=== PATIENT | male | born 1980 | race Caucasian/White ===

== ENCOUNTER 2018-01-11 14:38 | Emergency (ER) | payer SELFPAY ==
[2018-01-11] MEDS ORDERED: Sodium Chloride 0.9% 10 ML Syringe FLUSH PRN (15:47)
[2018-01-11] MEDS ORDERED: Ondansetron 4 MG/2 ML SDV IVPUSH ONE (15:47)
--- NOTE | 2018-01-11 15:49 | EDM.PDOC ---
ED HPI GENERAL MEDICAL PROBLEM - General Chief Complaint: Gastrointestinal Problem Stated Complaint: NAUSEA/VOMITING Time Seen by Provider: 01/11/18 15:44 Source of Information: Reports: Patient, Family, RN Notes Reviewed History Limitations: Reports: No Limitations - History of Present Illness INITIAL COMMENTS - FREE TEXT/NARRATIVE: 37-year-old gentleman presents to the emergency department today with complaint of nausea vomiting diarrhea, states is been ill for about 24 hours he's been unable to keep any food products down, no fevers shortness of breath or chest pain. He did have a bout of this similar sickness about 1 week ago - Related Data Allergies Allergy/AdvReac Type Severity Reaction Status Date / Time No Known Allergies Allergy Verified 01/11/18 15:12 Home Meds: Home Meds NK [No Known Home Meds] 01/11/18 [History] Past Medical History - Past Health History Medical/Surgical History: Denies Medical/Surgical History Social & Family History - Tobacco Use Smoking Status *Q: Never Smoker ED ROS GENERAL - Review of Systems Review Of Systems: See Below Constitutional: Denies: Fever, Chills HEENT: Reports: No Symptoms Respiratory: Reports: No Symptoms Cardiovascular: Reports: No Symptoms GI/Abdominal: Reports: Abdominal Pain, Diarrhea, Nausea, Vomiting : Reports: No Symptoms Musculoskeletal: Reports: No Symptoms Skin: Reports: No Symptoms Neurological: Reports: No Symptoms ED EXAM, GI/ABD - Physical Exam Exam: See Below Exam Limited By: No Limitations General Appearance: Alert, WD/WN, No Apparent Distress Throat/Mouth: Normal Inspection, Normal Lips, Normal Teeth, Normal Gums, Normal Oropharynx, Normal Voice, No Airway Compromise Head: Atraumatic, Normocephalic Neck: Normal Inspection, Supple, Non-Tender, Full Range of Motion Respiratory/Chest: No Respiratory Distress, Lungs Clear, Normal Breath Sounds, No Accessory Muscle Use Cardiovascular: Normal Peripheral Pulses, Regular Rate, Rhythm, No Murmur GI/Abdominal Exam: Soft, Non-Tender Course - Vital Signs Last Recorded V/S: Last Vital Signs Temp 97.6 F 01/11/18 15:19 Pulse 99 01/11/18 15:19 Resp 13 01/11/18 15:19 BP 151/90 H 01/11/18 15:19 Pulse Ox 98 01/11/18 15:19 - Orders/Labs/Meds Orders: Active Orders 24 hr Category Date Time Status Peripheral IV Care [RC] . DIRECTED Care 01/11/18 15:47 Active Lactated Ringers [Ringers, Lactated] 1,000 ml Med 01/11/18 16:00 Active IV ASDIRECTED Sodium Chloride 0.9% [Saline Flush] Med 01/11/18 15:47 Active 10 ml FLUSH ASDIRECTED PRN ED Antiemetic Medication Reflex [OM.PC] Click to Edit Oth 01/11/18 15:47 Ordered Peripheral IV Insertion Adult [OM.PC] Urgent Oth 01/11/18 15:47 Ordered Medication Orders Lactated Ringer's (Ringers, Lactated) 1,000 mls @ 999 mls/hr IV ASDIRECTED RAMONA Last Admin: 01/11/18 16:31 Dose: 999 mls/hr Sodium Chloride (Saline Flush) 10 ml FLUSH ASDIRECTED PRN PRN Reason: Keep Vein Open Last Admin: 01/11/18 16:30 Dose: 10 ml Labs: Laboratory Tests 01/11/18 01/11/18 01/11/18 Range/Units 16:09 16:10 16:10 WBC 14.3 H (4.5-11.0) K/uL RBC 5.55 (4.30-5.90) M/uL Hgb 16.1 H (12.0-15.0) g/dL Hct 48.3 (40.0-54.0) % MCV 87 (80-98) fL MCH 29 (27-31) pg MCHC 33 (32-36) % Plt Count 512 H (150-400) K/uL Neut % (Auto) 81 H (36-66) % Lymph % (Auto) 12 L (24-44) % Rush % (Auto) 6 (2-6) % Eos % (Auto) 0 L (2-4) % Baso % (Auto) 0 (0-1) % Sodium 139 L (140-148) mmol/L Potassium 4.3 (3.6-5.2) mmol/L Chloride 104 (100-108) mmol/L Carbon Dioxide 24 (21-32) mmol/L Anion Gap 15.3 H (5.0-14.0) mmol/L BUN 12 (7-18) mg/dL Creatinine 0.9 (0.8-1.3) mg/dL Est Cr Clr Drug Dosing 117.16 mL/min Estimated GFR (MDRD) > 60 (>60) Glucose 91 (74-106) mg/dL Lactic Acid (0.4-2.0) mmol/L Calcium 8.6 (8.5-10.1) mg/dL Total Bilirubin 1.3 H (0.2-1.0) mg/dL AST 42 H (15-37) U/L ALT 47 (12-78) U/L Alkaline Phosphatase 53 (46-116) U/L Total Protein 8.2 (6.4-8.2) g/dL Albumin 3.6 (3.4-5.0) g/dL Globulin 4.6 H (2.3-3.5) g/dL Albumin/Globulin Ratio 0.8 L (1.2-2.2) Lipase 136 (73-393) U/L Urine Color [place] Urine Appearance Clear Urine pH 5.0 (4.5-8.0) Ur Specific [place] 1.020 (1.008-1.030) Urine Protein Negative (NEGATIVE) mg/dL Urine Glucose (UA) Normal (NEGATIVE) mg/dL Urine Ketones Negative (NEGATIVE) mg/dL Urine Occult Blood Negative (NEGATIVE) Urine Nitrite Negative (NEGAITVE) Urine Bilirubin Small (NEGATIVE) Urine Urobilinogen 4 (NORMAL) mg/dL Ur Leukocyte Esterase Small (NEGATIVE) Urine RBC 0-5 (0-5) Urine WBC 0-5 (0-5) Ur Epithelial Cells Not seen Amorphous Sediment Rare Urine Bacteria Not seen Urine Mucus Not seen 01/11/18 Range/Units 16:10 WBC (4.5-11.0) K/uL RBC (4.30-5.90) M/uL Hgb (12.0-15.0) g/dL Hct (40.0-54.0) % MCV (80-98) fL MCH (27-31) pg MCHC (32-36) % Plt Count (150-400) K/uL Neut % (Auto) (36-66) % Lymph % (Auto) (24-44) % Rush % (Auto) (2-6) % Eos % (Auto) (2-4) % Baso % (Auto) (0-1) % Sodium (140-148) mmol/L Potassium (3.6-5.2) mmol/L Chloride (100-108) mmol/L Carbon Dioxide (21-32) mmol/L Anion Gap (5.0-14.0) mmol/L BUN (7-18) mg/dL Creatinine (0.8-1.3) mg/dL Est Cr Clr Drug Dosing mL/min Estimated GFR (MDRD) (>60) Glucose (74-106) mg/dL Lactic Acid 1.7 (0.4-2.0) mmol/L Calcium (8.5-10.1) mg/dL Total Bilirubin (0.2-1.0) mg/dL AST (15-37) U/L ALT (12-78) U/L Alkaline Phosphatase (46-116) U/L Total Protein (6.4-8.2) g/dL Albumin (3.4-5.0) g/dL Globulin (2.3-3.5) g/dL Albumin/Globulin Ratio (1.2-2.2) Lipase (73-393) U/L Urine Color Urine Appearance Urine pH (4.5-8.0) Ur Specific [place] (1.008-1.030) Urine Protein (NEGATIVE) mg/dL Urine Glucose (UA) (NEGATIVE) mg/dL Urine Ketones (NEGATIVE) mg/dL Urine Occult Blood (NEGATIVE) Urine Nitrite (NEGAITVE) Urine Bilirubin (NEGATIVE) Urine Urobilinogen (NORMAL) mg/dL Ur Leukocyte Esterase (NEGATIVE) Urine RBC (0-5) Urine WBC (0-5) Ur Epithelial Cells Amorphous Sediment Urine Bacteria Urine Mucus Meds: Medications Generic Name Dose Route Start Last Admin Trade Name Freq PRN Reason Stop Dose Admin Lactated Ringer's 1,000 mls @ 999 mls/hr 01/11/18 16:00 01/11/18 16:31 Ringers, Lactated IV 999 mls/hr ASDIRECTED RAMONA Administration Sodium Chloride 10 ml 01/11/18 15:47 01/11/18 16:30 Saline Flush FLUSH 10 ml ASDIRECTED PRN Administration Keep Vein Open Discontinued Medications Generic Name Dose Route Start Last Admin Trade Name Freq PRN Reason Stop Dose Admin Ondansetron HCl 4 mg 01/11/18 15:47 01/11/18 16:30 Zofran IVPUSH 01/11/18 15:48 4 mg ONETIME ONE Administration Departure - Departure Time of Disposition: 17:38 Disposition: Home, Self-Care 01 Condition: Good Clinical Impression: Gastroenteritis - Discharge Information Referrals: PCP,None [Primary Care Provider] - Forms: ED Department Discharge Additional Instructions: Use Zofran as needed to control nausea and vomiting symptoms, continue to push fluids, Please followup with your primary care provider in 3-5 days if not better, please call return to the emergency department with worsening of symptoms. - My Orders Last 24 Hours: My Active Orders 01/11/18 15:47 Peripheral IV Care [RC] . DIRECTED Sodium Chloride 0.9% [Saline Flush] 10 ml FLUSH ASDIRECTED PRN ED Antiemetic Medication Reflex [OM.PC] Click to Edit Peripheral IV Insertion Adult [OM.PC] Urgent 01/11/18 16:00 Lactated Ringers [Ringers, Lactated] 1,000 ml IV ASDIRECTED - Assessment/Plan Last 24 Hours: My Active Orders 01/11/18 15:47 Peripheral IV Care [RC] . DIRECTED Sodium Chloride 0.9% [Saline Flush] 10 ml FLUSH ASDIRECTED PRN ED Antiemetic Medication Reflex [OM.PC] Click to Edit Peripheral IV Insertion Adult [OM.PC] Urgent 01/11/18 16:00 Lactated Ringers [Ringers, Lactated] 1,000 ml IV ASDIRECTED Plan: Assessment Acuity = acute Site and laterality = gastroenteritis Etiology = probable viral cause Manifestations = nausea and vomiting Location of injury = Home Lab values = WBC elevated at 14.3 consistent leukocytosis, total bilirubin elevated 1.3 consistent with hyperbilirubinemia and specific gravity elevated 1.02 consistent with intravascular volume depletion remainder of the blood works unremarkable Plan He had good improvement with Zofran and 1 L of fluids, plan is discharge home with Zofran 4 mg ODT by mouth 3 times a day when necessary follow-up primary care next 3-5 days for reevaluation if not better This note was dictated using [employer] voice recognition software please call with any questions on syntax or [email or web address].
[2018-01-11] MEDS ORDERED: Lactated Ringers 1,000 ML IV SCH (16:00)
== END 2018-01-11 17:53 | disposition home or self-care (01) ==
LOC: JP.ED 14:38
DX: K52.9 Noninfective gastroenteritis and colitis, unspecified (principal)
CPT/HCPCS: 36415; 80053; 81001; 83605; 83690; 85025; 96361; 96374; 99284; J2405; J7050; J7120

== ENCOUNTER 2021-09-30 12:24 | Emergency (ER) | payer SELFPAY ==
--- NOTE | 2021-09-30 13:13 | EDM.PDOC ---
ED HPI GENERAL MEDICAL PROBLEM - General Chief Complaint: Skin Complaint Stated Complaint: ALLERGIC REACTION-FACE Time Seen by Provider: 09/30/21 13:00 Source of Information: Reports: Patient History Limitations: Reports: No Limitations - History of Present Illness INITIAL COMMENTS - FREE TEXT/NARRATIVE: 41-year-old male who has a job interview coming up later this week so he his weiss yesterday, and now has a very intense inflammatory reaction to the dye with redness, blistering and swelling of his face. No fevers or chills. It is not painful but it is very pruritic. Onset: Gradual (Inflammation developed overnight) Location: Reports: Face Associated Symptoms: Reports: Malaise, Other (Feels lightheaded uncomfortable). Denies: Fever/Chills, Headaches - Related Data Allergies Allergy/AdvReac Type Severity Reaction Status Date / Time No Known Allergies Allergy Verified 01/11/18 15:12 Home Meds: Home Meds NK [No Known Home Meds] 01/11/18 [History] Past Medical History - Past Health History Medical/Surgical History: Denies Medical/Surgical History Social & Family History - Tobacco Use Tobacco Use Status *Q: Current Some Day Tobacco User Years of Tobacco use: 25 Packs/Tins Daily: 0.5 - Caffeine Use Caffeine Use: Reports: Coffee, Soda, Tea - Recreational Drug Use Recreational Drug Use: No ED ROS GENERAL - Review of Systems Review Of Systems: See Below Constitutional: Denies: Fever, Chills HEENT: Denies: Throat Pain Respiratory: Denies: Shortness of Breath, Cough Cardiovascular: Denies: Chest Pain GI/Abdominal: Denies: Nausea, Vomiting Skin: Reports: Other (See HPI) Neurological: Reports: Dizziness ED EXAM, SKIN/RASH Exam: See Below Exam Limited By: No Limitations General Appearance: Alert, No Apparent Distress, Other (Looks uncomfortable but not distressed) Head: Other (Patient has diffuse erythematous inflammatory changes to the face and neck in the distribution of his weiss where he used chemicals yesterday) Respiratory/Chest: No Respiratory Distress, Lungs Clear Neurological: Alert, Oriented Psychiatric: Normal Affect, Normal Mood Skin: Other (Widespread and inflammatory erythema with edema and weeping exudate over the inflamed area of the face) Associated features: Swelling, Weeping Course - Vital Signs Last Recorded V/S: Last Vital Signs Temp 98.2 F 09/30/21 12:44 Pulse 108 H 09/30/21 12:44 Resp 18 09/30/21 12:44 BP 155/109 H 09/30/21 12:44 Pulse Ox 98 09/30/21 12:44 - Re-Assessments/Exams Free Text/Narrative Re-Assessment/Exam: 09/30/21 14:04 This patient is having a fairly significant reactive inflammatory process from the chemicals in the haircoloring dye. He was put on a Medrol Dosepak to take over the course of the next several days, and encouraged to continue with aggressive cool compresses to the inflamed area. He can return if worsening such as difficulty breathing, or recheck in 2 or 3 days if not improving with the steroid treatment Departure - Departure Time of Disposition: 13:29 Disposition: Home, Self-Care 01 Clinical Impression: Contact dermatitis Qualifiers: Contact dermatitis type: irritant Contact dermatitis trigger: cosmetics Qualified Code(s): L24.3 - Irritant contact dermatitis due to cosmetics - Discharge Information Instructions: Contact Dermatitis, [id number] Referrals: PCP,None [Primary Care Provider] - Forms: ED Department Discharge Care Plan Goals: Cool compresses to the area will be helpful, anti-inflammatories like ibuprofen or naproxen may help as well and take entire course of steroid as directed. Recheck in 2 to 3 days if not improving satisfactorily. Sepsis Event Note (ED) - Evaluation Sepsis Screening Result: No Definite Risk - Focused Exam Vital Signs: Vital Signs Temp Pulse Resp BP Pulse Ox 09/30/21 12:44 98.2 F 108 H 18 155/109 H 98
== END 2021-09-30 13:20 | disposition home or self-care (01) ==
LOC: JP.ED 12:24
DX: L24.3 Irritant contact dermatitis due to cosmetics (principal); Z72.0 Tobacco use
CPT/HCPCS: 99283

== ENCOUNTER 2021-10-22 18:54 | Emergency (ER) | payer SELFPAY ==
[2021-10-22] MEDS ORDERED: Metoprolol Tartrate 50 MG Tab PO ONE (19:27)
--- NOTE | 2021-10-22 19:33 | EDM.PDOC ---
ED HPI GENERAL MEDICAL PROBLEM - General Chief Complaint: Cardiovascular Problem Stated Complaint: heart racing, hx of panic attacks Time Seen by Provider: 10/22/21 19:15 Source of Information: Reports: Patient History Limitations: Reports: No Limitations - History of Present Illness INITIAL COMMENTS - FREE TEXT/NARRATIVE: 41-year-old male with a history of anxiety, has had previous reactions to CBD and tonight for some reason he decided to take a CBD gummy bear and cook supper. Within an hour he started having palpitations, anxiety, a sensation of chest pressure and tightness and shortness of breath. It feels the same as when he "smokes too much marijuana". No fevers or chills, no nausea or vomiting, he is very anxious. On arrival his pulse was 108 and a normal sinus rhythm. Onset: Gradual Duration: Hour(s): (Symptoms started gradually about 1 hour ago) Improves with: Reports: Rest, Other (Reassurance is helpful) Associated Symptoms: Reports: Malaise, Shortness of Breath, Other (Palpitations). Denies: Chest Pain - Related Data Allergies Allergy/AdvReac Type Severity Reaction Status Date / Time Penicillins Allergy Rash Verified 10/22/21 19:03 Home Meds: Home Meds NK [No Known Home Meds] 01/11/18 [History] Past Medical History - Past Health History Medical/Surgical History: Denies Medical/Surgical History Social & Family History - Caffeine Use Caffeine Use: Reports: Coffee, Tea - Recreational Drug Use Recreational Drug Use: Yes Recreational Drug Type: Reports: Other (see below) Other Recreational Drug Type: Delta 8 gummy tonight ED ROS GENERAL - Review of Systems Review Of Systems: See Below Constitutional: Denies: Fever, Chills HEENT: Denies: Vision Change Respiratory: Reports: Shortness of Breath Cardiovascular: Reports: Palpitations. Denies: Chest Pain GI/Abdominal: Denies: Abdominal Pain, Nausea, Vomiting Skin: Reports: No Symptoms Neurological: Reports: Dizziness Psychiatric: Reports: Anxiety ED EXAM, GENERAL - Physical Exam Exam: See Below Exam Limited By: No Limitations General Appearance: Alert, No Apparent Distress, Anxious Eye Exam: Bilateral Eye: Normal Inspection Head: Atraumatic Respiratory/Chest: No Respiratory Distress, Lungs Clear Cardiovascular: Regular Rate, Rhythm, Tachycardia GI/Abdominal: Soft, Non-Tender Extremities: Normal Inspection Neurological: Alert, Oriented, No Motor/Sensory Deficits Psychiatric: Anxious Skin Exam: Warm, Dry #1 Interpretation EKG Date: 10/22/21 Rhythm: NSR Rate (Beats/Min): 108 EKG Interpretation Comments: EKG shows normal sinus tachycardia. Course - Vital Signs Last Recorded V/S: Last Vital Signs Temp 97.8 F 10/22/21 19:02 Pulse 105 H 10/22/21 20:31 Resp 18 10/22/21 19:02 BP 125/79 10/22/21 20:31 Pulse Ox 95 10/22/21 20:23 - Orders/Labs/Meds Orders: Active Orders 24 hr Category Date Time Status Chest 2V [CR] Routine Exams 10/22/21 19:17 Taken EKG 12 Lead [EK] Routine Ther 10/22/21 19:27 Ordered Meds: Medications Discontinued Medications Generic Name Dose Route Start Last Admin Trade Name Diallo PRN Reason Stop Dose Admin Lorazepam 1 mg 10/22/21 20:24 10/22/21 20:31 Lorazepam 1 Mg Tab PO 10/22/21 20:25 1 mg ONETIME ONE Administration Metoprolol Tartrate 50 mg 10/22/21 19:27 10/22/21 20:31 Metoprolol Tartrate 50 Mg Tab PO 10/22/21 19:28 50 mg ONETIME ONE Administration - Re-Assessments/Exams Free Text/Narrative Re-Assessment/Exam: 10/22/21 19:33 Patient was kept on cardiac monitoring and while visiting with him his rate slowed to 104-106. This is clearly an anxiety reaction or adverse reaction to the CBD that he took earlier. This has happened to him before. He did not feel safe leaving so was given 50 mg of oral metoprolol and will be kept on the monitor. 10/22/21 21:38 2 view chest x-ray was negative, patient calm down after an hour. He was discharged with one 1 mg dose of Ativan to take orally when he gets home and encouraged to avoid that type of chemical in the future. Departure - Departure Time of Disposition: 20:40 Disposition: Home, Self-Care 01 Clinical Impression: Acute anxiety, Palpitations Instructions: Managing Anxiety, Adult Referrals: PCP,None [Primary Care Provider] - Forms: ED Department Discharge Care Plan Goals: Avoid CBD in the future, and take Ativan when you get home to help relax you for the rest of the evening. Recheck tomorrow if not improving satisfactorily. Sepsis Event Note (ED) - Evaluation Sepsis Screening Result: No Definite Risk - Focused Exam Vital Signs: Vital Signs Temp Pulse Pulse Resp BP BP Pulse Ox 10/22/21 20:31 105 H 125/79 10/22/21 20:23 95 125/79 95 10/22/21 19:02 97.8 F 116 H 18 154/97 H 96 - My Orders Last 24 Hours: My Active Orders 10/22/21 19:17 Chest 2V [CR] Routine 10/22/21 19:27 EKG 12 Lead [EK] Routine - Assessment/Plan Last 24 Hours: My Active Orders 10/22/21 19:17 Chest 2V [CR] Routine 10/22/21 19:27 EKG 12 Lead [EK] Routine
[2021-10-22] MEDS ORDERED: LORazepam 1 MG Tab PO ONE (20:24)
--- NOTE | 2021-10-23 10:33 | CR ---
CHEST: 2 view CLINICAL HISTORY:Dyspnea COMPARISON:None FINDINGS: Heart size and pulmonary vascular D are normal. There is mild generalized increase in the lung markings diffusely. Some of this due to patient body habitus. No effusions are seen. IMPRESSION: Generalized increase in lung markings. Some of this is artifactual due to patient body habitus. Diffuse pneumonitis is not excluded
== END 2021-10-22 20:41 | disposition home or self-care (01) ==
LOC: JP.ED 18:54
DX: F41.9 Anxiety disorder, unspecified (principal); R00.0 Tachycardia, unspecified; Z88.0 Allergy status to penicillin
CPT/HCPCS: 71046; 93005; 99285; A9270

== ENCOUNTER 2024-05-01 00:34 | Emergency (ER) | payer BC | END 2024-05-01 01:36 | disposition home or self-care (01) | LOC: JP.ED 00:34 | DX: T16.1XXA Foreign body in right ear, initial encounter (principal); Z88.0 Allergy status to penicillin | CPT/HCPCS: 99282 ==

== ENCOUNTER 2024-05-11 04:18 | Emergency (ER) | payer BC | END 2024-05-11 04:59 | disposition home or self-care (01) | LOC: JP.ED 04:18 | DX: T16.1XXA Foreign body in right ear, initial encounter (principal); Z88.0 Allergy status to penicillin | CPT/HCPCS: 99282 ==